=== PATIENT | male | born 1960 | race Caucasian/White ===

== ENCOUNTER 2016-09-29 16:42 | Emergency (ER) | payer OTHER ==
[~2016-09-29] VITALS: Ht 185.4 cm; Wt 107.6 kg
[~2016-09-29 16:42] MED LIST: ACTOS45 MG PO; ADVAIR 250/501 DISK IH; ATORVASTATIN CA40 MG PO; FENOFIBRATE48 MG PO; FLEXERIL10 MG PO; FLOMAX0.4 MG PO; FUROSEMIDE20 MG PO; GLIPIZIDE ER2.5 MG PO; GLIPIZIDE XL5 MG PO; GLIPIZIDE5 MG PO; GLUCOPHAGE1000 MG PO; JANUVIA100 MG PO; JANUVIA25 M1 PO; JANUVIA25 MG PO; KLOR-CON 1010 ME1 PO; LANTUS 3 M100 UNITS1 SC; LEVEMIR FL100 UNIT/1 SC; LISINOPRIL10 MG PO; LOPRESSOR25 MG PO; METFORMIN HCL1000 M1 PO; NEXIUM40 MG PO; NOVOLOG PE100 UNITS/ SC; PACERONE400 MG PO; PERCOCET 5/31 TABLET PO; PROMETHAZINE HC25 M1 PO; SIMVASTATIN40 MG PO; ST. JOSEPH ASPI81 MG PO; SYMBICORT60 INHALAT IH; TRAMADOL HCL50 MG PO
[2016-09-29 17:56] LABS: HEMATOCRIT 42.8 % (38.0-50.0); MCH 27.3 PG (29.0-34.0); MCHC 33.4 G/DL (30.0-36.0); MCV 81.8 FL (86-99); MEAN PLAT.VOLUME 10.7 uM^3 (9.0-12.4); PLATELET COUNT 155 K/uL (156-360); RBC DIS.WIDTH-SD 41.3 % (39-53); RED BLOOD COUNT 5.23 M/uL (4.00-5.50); WHITE BLOOD COUNT 5.6 K/uL (4.1-10.2)
[2016-09-29 18:12] LABS: CHLORIDE 109 mEq/L (99-109); POTASSIUM 4.1 mEq/L (3.7-5.4); SODIUM 139 mEq/L (136-147)
[2016-09-29 18:14] LABS: GLUCOSE 161 mg/dL (70-99)
[2016-09-29 18:15] LABS: ANION GAP 12 MEQ/L (2-14)
[2016-09-29 18:16] LABS: TOTAL BILIRUBIN 0.5 mg/dL (0.0-1.0)
[2016-09-29 18:18] LABS: ALKALINE PHOSPHATASE 99 IU/L (3-129); GFR ESTIMATE (CALCULATED) > 59 mL/min/
[2016-09-29 18:19] LABS: UREA NITROGEN (BUN) 16 mg/dL (9-23)
[2016-09-29] MEDS ORDERED: GENTAK3.5 GM LEFT EYE (20:53)
[2016-09-29] MEDS ORDERED: BENADRYL50 MG PO (20:53)
[2016-09-29] MEDS ORDERED: NORCO 5/3251 TABLET PO (20:53)
[2016-09-29] MEDS ORDERED: CLINDAMYCIN HC300 MG PO (20:53)
[2016-09-29 21:01] VITALS: BP 126/71
== END 2016-09-29 21:02 | disposition home or self-care (01) ==
LOC: EME 16:42
PROVIDERS: Physician Assistant
DX: L03.213 Periorbital cellulitis (principal); Z87.891 Personal history of nicotine dependence; E11.9 Type 2 diabetes mellitus without complications; E78.5 Hyperlipidemia, unspecified; I10 Essential (primary) hypertension; Z95.1 Presence of aortocoronary bypass graft; Z79.4 Long term (current) use of insulin; Z79.84 Long term (current) use of oral hypoglycemic drugs; Z79.82 Long term (current) use of aspirin; Z82.49 Family history of ischemic heart disease and other diseases of the circulatory system
CPT/HCPCS: 70487; 80053; 85027; 99281; 99285; J0696; J7030; J7050